=== PATIENT | male | born 1950 | race Hispanic/Latino ===

== ENCOUNTER 2017-09-22 05:52 | Observation (INO) | payer OTHER ==
[2017-09-21] MEDS: SODIUM CHLORIDE 0.9% 500ML 500 ML IV SCH (08:00)
[2017-09-21 10:27] LABS: BASOPHILS % (AUTO) 1.2 % (0.0-5.0); EOSINOPHILS % (AUTO) 3.7 % (0.0-8.0); HEMATOCRIT 37.2 % (42-54); LYMPHOCYTES % (AUTO) 34.5 % (21.0-51.0); MEAN CORPUSCULAR HEMOGLOBIN 33.2 pg (27.0-33.0); MEAN CORPUSCULAR HGB CONC 35.5 g/dL (32.0-36.0); MEAN CORPUSCULAR VOLUME 93.5 fL (79-99); MONOCYTES % (AUTO) 6.2 % (3.0-13.0); NEUTROPHILS % (AUTO) 54.4 % (40.0-77.0); NUCLEATED RED BLOOD CELLS 0.1 % (0.0-0.19); PLATELET COUNT (AUTO) 225 K/uL (130-400); RED BLOOD CELL COUNT(AUTO) 3.98 MIL/uL (4.50-6.20); RED CELL DISTRIBUTION WIDTH 12.8 % (11.0-15.5); WHITE BLOOD COUNT (AUTO) 3.7 K/uL (4.8-10.8)
[2017-09-21 10:37] VITALS: BP 122/63
[2017-09-21 10:37] LABS: APPEARANCE,URINE Clear (CLEAR); BILIRUBIN,URINE Negative (NEGATIVE); COLOR,URINE Yellow (YELLOW); GLUCOSE, URINE (UA) Negative (NEGATIVE); KETONES,URINE Negative (NEGATIVE); LEUKOCYTE ESTERASE ,URINE Negative (NEGATIVE); NITRATE,URINE Negative (NEGATIVE); OCCULT BLOOD,URINE Negative (NEGATIVE); PROTEIN,URINE Negative (NEGATIVE); UROBILINOGEN,URINE 0.2 mg/dL (0.2-1.0)
[2017-09-21 10:41] LABS: CREATININE 1.1 mg/dL (0.5-1.5); POTASSIUM 4.2 mmol/L (3.5-5.1)
[2017-09-21 10:43] LABS: INR 0.99 (0.85-1.15); PARTIAL THROMBOPLASTIN TIME 24.3 SEC (26.3-35.5); PROTHROMBIN TIME 10.4 SEC (9.6-11.6)
[~2017-09-22] VITALS: Ht 170.2 cm; Wt 86.2 kg
[2017-09-22] VITALS (20 sets, daily range): BP systolic 99–152; BP diastolic 49–93
[2017-09-22] MEDS: SODIUM CHLORIDE 0.9% 500ML 500 ML IV SCH ×2 (05:00→15:17)
[~2017-09-22 05:52] MED LIST: ACET-66 PO; ASPI-555 PO; CARV3.12 PO; CLOP75TA14 PO; CYAN25002 PO; FOLI0.4T2 PO; FURO-152 PO; LOSA25TA21 PO; PANT40TA25 PO; SPIR25TA4 PO; VITA1TAB39 PO
[2017-09-22 06:15] LABS: BASOPHILS % (AUTO) 1.2 % (0.0-5.0); EOSINOPHILS % (AUTO) 3.5 % (0.0-8.0); HEMATOCRIT 38.1 % (42-54); LYMPHOCYTES % (AUTO) 36.6 % (21.0-51.0); MEAN CORPUSCULAR HEMOGLOBIN 31.6 pg (27.0-33.0); MEAN CORPUSCULAR HGB CONC 34.3 g/dL (32.0-36.0); MEAN CORPUSCULAR VOLUME 92.1 fL (79-99); MONOCYTES % (AUTO) 6.7 % (3.0-13.0); PLATELET COUNT (AUTO) 233 K/uL (130-400); RED BLOOD CELL COUNT(AUTO) 4.14 MIL/uL (4.50-6.20); RED CELL DISTRIBUTION WIDTH 12.8 % (11.0-15.5); WHITE BLOOD COUNT (AUTO) 3.9 K/uL (4.8-10.8)
[2017-09-22] MEDS ORDERED: SODIUM CHLORIDE 0.9% 1000ML 1,000 ML IV ONE (06:49)
[2017-09-22] MEDS ORDERED: NITR0.3T11 SL (07:01)
[2017-09-22] MEDS ORDERED: IOPAMIDOL-370 100 ML VIAL IV ONE (07:07)
[2017-09-22] MEDS ORDERED: HEPARIN SODIUM 1000UNIT/ML 10ML VIAL ONE (07:07)
[2017-09-22] MEDS ORDERED: LIDOCAINE HCL 2% 20ML ONE (07:07)
[2017-09-22] MEDS ORDERED: ISOVUE-370 50ML VIAL IV ONE (07:07)
[2017-09-22] MEDS ORDERED: NITROGLYCERIN 4.1 GM SPRAY TL ONE (08:04)
[2017-09-22] MEDS ORDERED: IOPAMIDOL-370 75 ML VIAL IV ONE (08:17)
[2017-09-22] MEDS ORDERED: CLOPIDOGREL BISULFATE 300 MG TAB ONE (08:27)
[2017-09-22] MEDS ORDERED: ASPIRIN 325MG EC TAB 325 MG TABLET.DR PO ONE (08:27)
[2017-09-22] MEDS ORDERED: ACETAMINOPHEN-CODEINE 300/30MG TAB PO PRN ×2 (08:45)
[2017-09-22] MEDS ORDERED: DEXTROSE 5 %-0.45 % NACL 1,000 ML IV SCH (08:45)
[2017-09-22] MEDS ORDERED: TEMAZEPAM 30 MG CAP PO PRN (08:45)
[2017-09-22] MEDS ORDERED: NITROGLYCERIN 50 MG/D5% WATER 1 BOT IV PRN (08:45)
[2017-09-22] MEDS ORDERED: MORPHINE SULFATE 5 MG/ML VIAL IVP SCH ×2 (08:45)
[2017-09-22] MEDS ORDERED: ONDANSETRON HCL 4 MG/2 ML VIAL IVP PRN (08:45)
[2017-09-22] MEDS ORDERED: ONDANSETRON HCL 4 MG/2 ML VIAL IVP SCH (08:45)
[2017-09-22] MEDS ORDERED: ACETAMINOPHEN EXTRA STRENGTH 500 MG TABLET PO PRN (08:45)
[2017-09-22] MEDS: FOLIC ACID 1 MG TABLET PO SCH (09:00)
[2017-09-22] MEDS: CLOPIDOGREL BISULFATE 75 MG TAB PO SCH (09:00)
[2017-09-22] MEDS: FUROSEMIDE 20 MG TABLET PO SCH (09:00)
[2017-09-22] MEDS: VITAMIN B COMPLEX 1 CAPSULE PO SCH (09:00)
[2017-09-22] MEDS: PANTOPRAZOLE SODIUM 40 MG TABLET.DR PO SCH (09:00)
[2017-09-22] MEDS ORDERED: ASPIRIN 81 MG EC TAB PO SCH (09:00)
[2017-09-22] MEDS: SPIRONOLACTONE 25 MG TAB PO SCH (09:00)
[2017-09-22] MEDS: CYANOCOBALAMIN (VITAMIN B-12) 1,000 MCG TABLET PO SCH (09:00)
[2017-09-22] MEDS: LOSARTAN 50 MG TABLET PO SCH (09:00)
[2017-09-22] MEDS: ASPIRIN 81MG TAB.CHEW PO SCH (09:00)
[2017-09-22] MEDS: CARVEDILOL 3.125 MG TABLET PO SCH (09:00)
[2017-09-22] MEDS ORDERED: CLOPIDOGREL BISULFATE 75 MG TAB PO SCH (09:00)
[2017-09-22] MEDS ORDERED: ATROPINE SULFATE 0.1 MG/ML 10 ML SYG IVP ONE (09:02)
[2017-09-23 03:06] VITALS: BP 102/51
[2017-09-23 04:26] LABS: HEMATOCRIT 38.2 % (42-54); MEAN CORPUSCULAR HEMOGLOBIN 32.8 pg (27.0-33.0); MEAN CORPUSCULAR HGB CONC 35.2 g/dL (32.0-36.0); MEAN CORPUSCULAR VOLUME 93.2 fL (79-99); PLATELET COUNT (AUTO) 224 K/uL (130-400); RED BLOOD CELL COUNT(AUTO) 4.09 MIL/uL (4.50-6.20); WHITE BLOOD COUNT (AUTO) 4.7 K/uL (4.8-10.8)
[2017-09-23 04:47] LABS: CREATININE 1.1 mg/dL (0.5-1.5); POTASSIUM 3.7 mmol/L (3.5-5.1)
[2017-09-23] MEDS: SPIRONOLACTONE 25 MG TAB PO SCH (07:11)
[2017-09-23] MEDS: VITAMIN B COMPLEX 1 CAPSULE PO SCH (07:11)
[2017-09-23] MEDS: FUROSEMIDE 20 MG TABLET PO SCH (07:11)
[2017-09-23] MEDS: CLOPIDOGREL BISULFATE 75 MG TAB PO SCH (07:11)
[2017-09-23] MEDS: LOSARTAN 50 MG TABLET PO SCH (07:11)
[2017-09-23] MEDS: CARVEDILOL 3.125 MG TABLET PO SCH (07:12)
[2017-09-23] MEDS: ASPIRIN 81MG TAB.CHEW PO SCH (07:12)
[2017-09-23] MEDS: CYANOCOBALAMIN (VITAMIN B-12) 1,000 MCG TABLET PO SCH (07:12)
[2017-09-23] MEDS: FOLIC ACID 1 MG TABLET PO SCH (07:12)
[2017-09-23] MEDS: PANTOPRAZOLE SODIUM 40 MG TABLET.DR PO SCH (07:12)
[2017-09-23 07:45] VITALS: BP 119/58
[2017-09-23 11:13] VITALS: BP 95/59
== END 2017-09-23 12:27 | disposition home or self-care (01) ==
LOC: DAH 05:52 → DAHIP 05:53 → 2DH 16:07
PROVIDERS: ADMIT Internal Medicine Cardiovascular Disease; ATTEND Internal Medicine Cardiovascular Disease
DX: I25.119 Atherosclerotic heart disease of native coronary artery with unspecified angina pectoris (principal); I25.2 Old myocardial infarction; Z95.5 Presence of coronary angioplasty implant and graft; Z79.899 Other long term (current) drug therapy; E78.5 Hyperlipidemia, unspecified; I10 Essential (primary) hypertension
CPT/HCPCS: 36415 ×3; 71010; 80048 ×2; 80061; 81003; 85025 ×2; 85027; 85610; 85730 ×4; 93005 ×2; 93458; 96374; A4606; C1769; C1874 ×3; C1887 ×2; C1894; C9600 ×2; G0378 ×31; J1644; J2405; J3490; J7030; Q9967 ×3; J0461

== ENCOUNTER → 2019-06-16 | Outpatient (CLI) | payer OTHER ==
[~2019-06-16] MED LIST changes: -LOSA25TA21 PO; +LOSA25TA41 PO; +NITR0.3T11 SL; +REGADENOSON 0.4 MG/5 ML PF SYG IVP SCH; -SPIR25TA4 PO; +SPIR25TA6 PO
== END | disposition home or self-care (01) ==
LOC: SHCH 09:04
PROVIDERS: ATTEND Internal Medicine Cardiovascular Disease
DX: I25.119 Atherosclerotic heart disease of native coronary artery with unspecified angina pectoris (principal); R06.00 Dyspnea, unspecified
CPT/HCPCS: 78452; 93017; 96374; A9500 ×2; J2785

== ENCOUNTER 2019-11-30 06:00 | Observation (INO) | payer OTHER ==
[2019-11-27 14:34] VITALS: BP 97/53
[2019-11-27 14:39] LABS: BASOPHILS % (AUTO) 1.3 % (0.0-5.0); EOSINOPHILS % (AUTO) 2.3 % (0.0-8.0); HEMATOCRIT 39.5 % (42-54); LYMPHOCYTES % (AUTO) 28.5 % (21.0-51.0); MEAN CORPUSCULAR HEMOGLOBIN 30.9 pg (27.0-33.0); MEAN CORPUSCULAR HGB CONC 32.7 g/dL (32.0-36.0); MEAN CORPUSCULAR VOLUME 94.5 fL (79-99); MONOCYTES % (AUTO) 8.6 % (3.0-13.0); NEUTROPHILS % (AUTO) 58.8 % (40.0-77.0); PLATELET COUNT (AUTO) 285 K/uL (130-400); RED BLOOD CELL COUNT(AUTO) 4.18 MIL/uL (4.50-6.20); RED CELL DISTRIBUTION WIDTH 13.2 % (11.0-15.5)
[2019-11-27 14:44] LABS: INR 0.98 (0.85-1.15); PARTIAL THROMBOPLASTIN TIME 23.3 SEC (26.3-35.5); PROTHROMBIN TIME 10.3 SEC (9.6-11.6)
[2019-11-27 14:49] LABS: CREATININE 1.1 mg/dL (0.5-1.5)
[2019-11-27 14:58] LABS: APPEARANCE,URINE CLEAR (CLEAR); BILIRUBIN,URINE NEGATIVE (NEGATIVE); COLOR,URINE YELLOW (YELLOW); GLUCOSE, URINE (UA) NEGATIVE (NEGATIVE); KETONES,URINE NEGATIVE (NEGATIVE); LEUKOCYTE ESTERASE ,URINE NEGATIVE (NEGATIVE); NITRATE,URINE NEGATIVE (NEGATIVE); OCCULT BLOOD,URINE NEGATIVE (NEGATIVE); PROTEIN,URINE NEGATIVE (NEGATIVE)
[~2019-11-30] VITALS: Ht 172.7 cm; Wt 84.4 kg
[2019-11-30] VITALS (31 sets, daily range): BP systolic 102–145; BP diastolic 47–98
[~2019-11-30 06:00] MED LIST changes: +CHOL100046 PO; -CYAN25002 PO; -FOLI0.4T2 PO; +ISOS30TA6 PO; -NITR0.3T11 SL; +OMEG-148 PO; +PREG75 PO; -REGADENOSON 0.4 MG/5 ML PF SYG IVP SCH; +ROSU20TA23 PO; +SENN-107 PO; +SODIUM CHLORIDE 0.9% 500ML 500 ML IV SCH; +ZOLP5TAB8 PO; +vitamin b12
--- NOTE | 2019-11-30 06:30 | NUR ---
PRE OP PT ARRIVED AMBULATORY IN NO DISTRESS. PT MADE COMFORTABLE IN ROOM, BED IN LOWEST POSITION, CALL LIGHT WITHIN REACH AND INSTRUCTED TO CALL FRO ASSISTANCE. PT HAS BRUISE TO RT UPPER ARM. Addendum: 11/30/19 at 1140 by LINDA BURNETT RN RN Amended: Links added.
--- NOTE | 2019-11-30 06:30 | NUR ---
PRE-PROCEDURE RECEIVED AMBULATORY TO DAY 8 FOR SCHEDULED LHC ACCOMPANIED BY . AWAKE IN NO ACUTE DISTRESS. DENIES PAIN. CONNECTED TO CONTINUOUS CARDIOPULMONARY MONITORING. SIDE RAILS UP X2, BED IN LOWEST POSITION, AND CALL LIGHT W/IN REACH.
[2019-11-30] MEDS ORDERED: SODIUM CHLORIDE 0.9% 1000ML 1,000 ML IV ONE (07:03)
[2019-11-30] MEDS ORDERED: HEPARIN SODIUM 1000UNIT/ML 10ML VIAL ONE (08:04)
[2019-11-30] MEDS ORDERED: IOHEXOL-350 50ML VIAL IV ONE (08:04)
[2019-11-30] MEDS ORDERED: IOHEXOL 350 MG/ML 100ML INFUS..BTL IV ONE (08:05)
[2019-11-30] MEDS ORDERED: LIDOCAINE HCL 2% 20ML ONE (08:05)
[2019-11-30] MEDS ORDERED: MIDAZOLAM HCL 1 MG/ML 2ML VIAL ONE (08:54)
--- NOTE | 2019-11-30 09:10 | NUR ---
PROCEDURE TRANSFERRED TO DIRECTOR OF STRATEGY & MOBILE VIA BED. AWAKE IN NO ACUTE DISTRESS. Addendum: 11/30/19 at 1100 by PANKAJ PETERSEN RN RN CORRECTION [id number]
--- NOTE | 2019-11-30 09:15 | NUR ---
POST-PROCEDURE RECEIVED FROM CHEMICAL ENGINEERING TEACHER VIA BED BY EVELYNE CACERES RN. AWAKE IN NO ACUTE DISTRESS. 6FSHEATH TO RIGHT GROIN WITH HEPARIN INFUSING VIA PRESSURE BAG. CONNECTED TO CONTINUOUS CARDIOPULMONARY MONITORING. SIDE RAILS UP X2, BED IN LOWEST POSITION, AND CALL LIGHT W/IN REACH. EDUCATED TO KEEP RIGHT LEG STRAIGHT AND HEAD FLAT. VERBALIZED UNDERSTANDING.
[2019-11-30] MEDS ORDERED: TEMAZEPAM 30 MG CAP PO PRN (10:00)
[2019-11-30] MEDS ORDERED: MORPHINE SULFATE 5 MG/ML VIAL IVP SCH ×2 (10:00)
[2019-11-30] MEDS ORDERED: ONDANSETRON HCL 4 MG/2 ML VIAL IVP PRN (10:00)
[2019-11-30] MEDS ORDERED: ONDANSETRON HCL 4 MG/2 ML VIAL IVP SCH (10:00)
[2019-11-30] MEDS ORDERED: ACETAMINOPHEN-CODEINE 300/30MG TAB PO PRN ×2 (10:00)
[2019-11-30] MEDS ORDERED: ACETAMINOPHEN 325 MG TAB ONE ×2 (10:35→20:33)
[2019-11-30] MEDS ORDERED: ACETAMINOPHEN 325 MG TAB PO SCH (10:45)
[2019-11-30 12:33] LABS: INR 1.09 (0.85-1.15); PROTHROMBIN TIME 11.4 SEC (9.6-11.6)
[2019-11-30] MEDS ORDERED: MORPHINE SULFATE 2 MG/ML 1ML SYG ONE (14:00)
--- NOTE | 2019-11-30 15:15 | NUR ---
REPORT REPORT GIVEN TO CARO SUAREZ RN USING SBAR. VERBALIZED UNDERSTANDING.
--- NOTE | 2019-11-30 15:25 | NUR ---
FEMORAL SITE BLEEDING, PRESSURE APPLIED TO STOP BLEEDING AND NEW DSTAT APPLIED.
--- NOTE | 2019-11-30 17:20 | NUR ---
PATIENT TRANSFERRED TO ROOM 223 (PATIENT'S SPOUSE IN ROOM AND NURSE ZACH GEORGE IN ROOM). SITE CHECKED, NO HEMATOMA, NO BLEEDING NOTED.
--- NOTE | 2019-11-30 18:30 | NUR ---
REPORT CALLED KARY SERRANO RN USING SBAR, ALL QUESTIONS ADDRESSED REGARDING PATIENT CARE
--- NOTE | 2019-11-30 20:00 | NUR ---
PT HAVING DIFFICULTY WITH COMPLYING TO S/P LHC BEDREST AND LAYING FLAT RESTRICTIONS. STATES HAS HAD BACK SURGERIES THAT CAUSE CHRONIC PAIN. EDUCATED ON REASONING BEHIND LAYING FLAT AND MINIMIZING MOVEMENT TO PREVENT BLEEDING FROM HEART CATH SITE.
[2019-12-01] VITALS: BP 119/58
[2019-12-01 04:17] VITALS: BP 152/67
[2019-12-01 04:45] LABS: HEMATOCRIT 39.9 % (42-54); MEAN CORPUSCULAR HEMOGLOBIN 31.1 pg (27.0-33.0); MEAN CORPUSCULAR HGB CONC 33.8 g/dL (32.0-36.0); MEAN CORPUSCULAR VOLUME 91.9 fL (79-99); PLATELET COUNT (AUTO) 244 K/uL (130-400); RED BLOOD CELL COUNT(AUTO) 4.34 MIL/uL (4.50-6.20); RED CELL DISTRIBUTION WIDTH 12.7 % (11.0-15.5); WHITE BLOOD COUNT (AUTO) 4.2 K/uL (4.8-10.8)
[2019-12-01 04:58] LABS: CREATININE 1.1 mg/dL (0.5-1.5); POTASSIUM 3.6 mmol/L (3.5-5.1)
--- NOTE | 2019-12-01 07:40 | NUR ---
ASSESSMENT ENCOUNTERED PT A&OX3, CALM COOPERATIVE AND DOES NOT APPEAR TO BE IN ANY DISTRESS NOR ANY NEURO DEFICITS PRESENT. PT DENIES PAIN, SOB, NAUSEA. RT GROIN SOFT NONTENDER WITH NO OOZING OR HEMATOMA PRESENT. DP/PT PULSES PALPABLE. PT IS AMBULATORY, GAIT STEADY AND STRONG WITH STAND BY ASSIST. CALL LIGHT WITHIN REACH, FAMILY AT BEDSIDE.
[2019-12-01 07:47] VITALS: BP 120/70
[2019-12-01] MEDS ORDERED: CLOPIDOGREL BISULFATE 75 MG TAB PO SCH (09:00)
[2019-12-01] MEDS ORDERED: ASPIRIN 81MG TAB.CHEW PO SCH (09:00)
[2019-12-01] MEDS ORDERED: ACETAMINOPHEN 325 MG TAB ONE (09:26)
--- NOTE | 2019-12-01 13:00 | NUR ---
DISCHARGE INSTRUCTIONS GIVEN, PIV REMOVED AND INTACT, DISCHARGED HOME TO FAMILY VEHICLE VIA WHEELCHAIR.
--- NOTE | 2019-12-01 16:18 | NUR ---
[id number] patient signed HENDERSON Letter, I faxed HENDERSON Letter to [phone] and placed in chart under consent tab
== END 2019-12-01 13:00 | disposition home or self-care (01) ==
LOC: DAH 06:00 → DAHIP 06:01 → 2DH 19:19
PROVIDERS: ADMIT Internal Medicine Cardiovascular Disease; ATTEND Internal Medicine Cardiovascular Disease
DX: I25.119 Atherosclerotic heart disease of native coronary artery with unspecified angina pectoris (principal)
CPT/HCPCS: 36415 ×3; 71045; 80048 ×2; 80061; 81003; 85025; 85027; 85610 ×2; 85730 ×3; 92920; 93005 ×3; 93458; 96374; A4215; A4216; A4221; A4222; A4223 ×3; A4606; A4663; C1725; C1769; C1887; C1894; G0378 ×19; J1644 ×2; J2250; J2405; J3490; J7030; Q9965; Q9967 ×2; 99156; 99157

== ENCOUNTER → 2023-01-04 | Outpatient (CLI) | payer OTHER ==
[~2023-01-04] MED LIST changes: -ASPI-555 PO; +ASPI-556 PO; +CLOP-31 PO; -CLOP75TA14 PO; -ISOS30TA6 PO; +ISOS30TA92 PO; -PANT40TA25 PO; +PANT40TA54 PO; -SODIUM CHLORIDE 0.9% 500ML 500 ML IV SCH
[2023-01-04 12:51] LABS: BASOPHILS % (AUTO) 1.1 % (0.0-5.0); EOSINOPHILS % (AUTO) 3.6 % (0.0-8.0); HEMATOCRIT 43.7 % (42-54); LYMPHOCYTES % (AUTO) 25.1 % (21.0-51.0); MEAN CORPUSCULAR VOLUME 94.2 fL (79-99); MONOCYTES % (AUTO) 6.8 % (3.0-13.0); PLATELET COUNT (AUTO) 272 K/uL (130-400); RED BLOOD CELL COUNT(AUTO) 4.64 MIL/uL (4.50-6.20); RED CELL DISTRIBUTION WIDTH 13.2 % (11.0-15.5); WHITE BLOOD COUNT (AUTO) 4.7 K/uL (4.8-10.8)
[2023-01-04 13:17] LABS: ALBUMIN 4.1 g/dL (3.5-5.0); CREATININE 1.3 mg/dL (0.5-1.5); POTASSIUM 4.3 mmol/L (3.5-5.1)
== END | disposition home or self-care (01) ==
LOC: LAB 10:58
PROVIDERS: ATTEND Internal Medicine Cardiovascular Disease
DX: I10 Essential (primary) hypertension (principal)
CPT/HCPCS: 36415; 80053; 85025

== ENCOUNTER 2024-11-14 05:43 | Day surgery (SDC) | payer OTHER ==
[2024-11-14] VITALS (12 sets, daily range): BP systolic 102–121; BP diastolic 51–64; PULSE 52–65; RESP 14–16; TEMP 97.1–98.2
[~2024-11-14] VITALS: Ht 172.7 cm; Wt 86.2 kg
[~2024-11-14 05:43] MED LIST changes: -ACET-66 PO; -ASPI-556 PO; -CARV3.12 PO; -CHOL100046 PO; -FURO-152 PO; -ISOS30TA92 PO; -OMEG-148 PO; +PREG100C56 PO; -PREG75 PO; -SENN-107 PO; -SPIR25TA6 PO; +TAMS-1 PO; -VITA1TAB39 PO; -ZOLP5TAB8 PO; -vitamin b12
[2024-11-14] MEDS: 0.9%NACL 1000ML 1,000 ML IV ONE (06:25)
[2024-11-14] MEDS ORDERED: proPOFol 10 MG/ML 20ML VIAL IV ONE (07:05)
--- NOTE | 2024-11-14 09:33 | NUR ---
Full and complete Discharge Instructions given to Patient and Family both verbally and in writing.. All questions answered.Voiced understanding to GI procedure precautions and Follow Up. PIV removed with catheter tip intact. Denies c/o pain or discomfort. W/C to POV with Family to home.
== END 2024-11-14 09:00 | disposition home or self-care (01) ==
LOC: SUH 05:43 → DAH 05:43 → SUH 09:00
PROVIDERS: ATTEND Internal Medicine Gastroenterology
DX: K59.04 Chronic idiopathic constipation (principal); D12.3 Benign neoplasm of transverse colon; D12.4 Benign neoplasm of descending colon; J44.9 Chronic obstructive pulmonary disease, unspecified; K21.9 Gastro-esophageal reflux disease without esophagitis; K31.84 Gastroparesis; K76.0 Fatty (change of) liver, not elsewhere classified; K64.8 Other hemorrhoids; I25.10 Atherosclerotic heart disease of native coronary artery without angina pectoris; E78.5 Hyperlipidemia, unspecified; M19.90 Unspecified osteoarthritis, unspecified site; E66.9 Obesity, unspecified; I25.2 Old myocardial infarction; I10 Essential (primary) hypertension; Z86.0100 Personal history of colon polyps, unspecified; Z95.5 Presence of coronary angioplasty implant and graft; Z68.30 Body mass index [BMI] 30.0-30.9, adult; Z98.890 Other specified postprocedural states; Z79.82 Long term (current) use of aspirin; Z79.899 Other long term (current) drug therapy
CPT/HCPCS: 45380; 45385; J7030 ×2; J2704; A4620; A4215 ×2; A4223; A4222; A4221; A4663; A4606; J3490

== ENCOUNTER → 2025-06-11 | Outpatient (CLI) | payer OTHER ==
[~2025-06-11] MED LIST changes: -CLOP-31 PO; -TAMS-1 PO; +TAMS-55 PO
--- NOTE | 2025-06-12 02:26 | HMCIMG ---
EXAM: MR Cervical Spine Without Intravenous Contrast. CLINICAL HISTORY: Cervicalgia. TECHNIQUE: Magnetic resonance images of the cervical spine in multiple planes. CONTRAST: None. COMPARISON: None. FINDINGS: The imaged posterior fossa is unremarkable. The craniocervical junction is intact. No acute fracture. Mild levoscoliosis. Straightening of the cervical lordosis reflects paraspinal muscle spasm. Multilevel spondylosis is evident by marginal osteophytes and facet joint arthropathy. Multilevel disc desiccation noted. Normal vertebral body and disc heights. Normal marrow signal of the vertebrae. Prominent central canal of the spinal cord at C3-C6 vertebral levels. No extra-axial masses. The surrounding soft tissues are unremarkable. Level by level, disease is present as follows: C1-C2: Mild osteoarthritis. C2-C3: No disc bulge or herniation. No neural foraminal, lateral recess, or spinal canal stenosis. C3-C4: 3 mm right predominant disc osteophyte complex bulge causing mild indentation on the anterior thecal sac and moderate right foraminal narrowing with possible impingement on the right exiting C4 nerve root. No spinal canal stenosis. C4-C5: Grade 1 degenerative anterolisthesis of C4 on C5. 3 mm disc osteophyte complex bulge causing mild indentation on the anterior thecal sac and moderate right and mild left neuroforaminal narrowing with possible impingement on the right exiting C5 nerve root. Mild spinal canal stenosis.. C5-C6: 2 mm disc osteophyte complex bulge causing mild indentation on the anterior thecal sac. No neural foraminal or lateral recess stenosis. C6-C7: 2 mm disc osteophyte complex bulge causing mild indentation on the anterior thecal sac. Mild left neuroforaminal narrowing. There is up to 3 mm ligamentum flavum thickening bilaterally with posterior thecal sac indentation. C7-T1: No disc bulge or herniation. No neural foraminal, lateral recess, or spinal canal stenosis. IMPRESSION: Mild levoscoliosis. Straightening of the cervical lordosis reflects paraspinal muscle spasm. Mild to moderate spondylosis and degenerative disc disease at multiple levels, most pronounced at C4-C5. [facility]
== END | disposition home or self-care (01) ==
LOC: RAH 14:19
PROVIDERS: ATTEND Internal Medicine
DX: M47.812 Spondylosis without myelopathy or radiculopathy, cervical region (principal); M48.02 Spinal stenosis, cervical region; M50.31 Other cervical disc degeneration, high cervical region; M50.321 Other cervical disc degeneration at C4-C5 level; M50.322 Other cervical disc degeneration at C5-C6 level; M50.323 Other cervical disc degeneration at C6-C7 level; M40.40 Postural lordosis, site unspecified; M25.78 Osteophyte, vertebrae
CPT/HCPCS: 72141